=== PATIENT | male | born 1945 | race Caucasian/White ===

== ENCOUNTER 2016-10-03 22:47 | Inpatient (IN) | payer MEDICARE ==
[~2016-10-03] VITALS: Ht 188 cm; Wt 67.2 kg
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
--- NOTE | 2016-10-07 07:14 | OR ---
ADMIT: 10/03/2016 RM/LOC: 312 [facility] MR#: [id number] [address] [address] DOUGLAS ETIENNE [facility] [place] [address] Operative/Delivery Room Report SEX: M AGE: 71 : 1945 SURGERY DATE: 10/04/2016 SURGEON: Manuel Valadez MD [employer] TECHNICIAN: aRad Warren PA-C. PREOPERATIVE DIAGNOSIS: Right femoral neck fracture. POSTOPERATIVE DIAGNOSIS: Right femoral neck fracture. PROCEDURE PERFORMED: Right bipolar hemiarthroplasty. IMPLANTS: DePuy Tri Lock size 6 stem, 1-1/2 neck and a 51 cup. BLOOD LOSS: 100. COMPLICATIONS: None. INDICATION: Douglas is a 71-year-old male, unfortunately alcoholic, who had fallen and hit his head and has what looks like a subarachnoid hemorrhage. He was sent here and admitted to the Neurosurgery Service for care of that. In the course of his workup, he was also found to have a right femoral neck fracture and I was consulted for care of that. After clearance by the neurosurgeon as the lesion in his head seemed to be stable as well as clearance by the medical doctors, we offered surgical fixation. The consent was signed by his daughter and we brought him here for surgery. DESCRIPTION OF PROCEDURE: The patient was identified in the preoperative holding area. Written informed consent was confirmed, site was marked. Brought to the OR, placed supine. General anesthesia was induced. He was then placed in the lateral decubitus position with the right leg up, prepped and draped in the usual sterile fashion. Time-out was performed. Preop antibiotics were confirmed. Made an incision kind of centered over the tip of the trochanter through skin and subcutaneous tissue, cleared off the IT band, cut through the IT band. Put the Charnley in, cleared off the bursa, resected the anterior third of the vastus and the medius in one continuous flap with the minimus and the capsule. Then exposed the proximal femur down to the calcar, removed the fractured femoral head, sized that to 51 on the back table. Removed the other little bony fragments that were still in there and then revised the cut to about, I would say, about 5 mm proximal to the lesser trochanter. Then used the KXEN cutter to open up laterally, the [employer] rasp to lateralize and then reamed starting with the zero up to 0, 1, 2, 3, 4, 5 and 6. Six got me down where it just a little bit proud right where I wanted it and a nice fit mediolateral, wedged in there very nice and stable without complication. Removed this, irrigated copiously with normal saline using the jet lavage and placed the final 6 stem in and impacted the 51 ADMIT: 10/03/2016 RM/LOC: 312 [facility] MR#: [id number] [address] [place] [id number] [place] [address] Operative/Delivery Room Report SEX: M AGE: 71 : 1945 head and relocated the hip. This was very nice and stable. Had excellent motion, no impingement. We then closed with a 5 Tycron and a pursestring suture through the greater trochanter up through the capsule and minimus and then back down the medius and then tied that down and then a running 1 Vicryl for the vastus and then used a 1 Vicryl for the IT band, 2-0 for the subcutaneous and Monocryl for the skin. Placed the glue dressing on there and then he was extubated, brought to the postoperative care unit in good condition. No complications. Postoperatively, he will be weight bear as tolerated with no active abduction. He will be in an abduction pillow while in bed for about 24-48 hours and then will have continued management by neurosurgery team as well as on the alcohol withdrawal protocol by the medical team. Manuel Valadez MD/ daniel JOB #: [id number] CC: Davis Causey, Attending Physician Arturo Ying, Family Physician
--- NOTE | 2016-10-07 07:14 | CO ---
ADMIT: 10/03/2016 RM/LOC: 312 [facility] MR#: [id number] [address] [address] GARRY ETIENNE [facility] [place] [address] Consultation SEX: M AGE: 71 : 1945 DATE OF CONSULTATION: 10/04/2016 ATTENDING PHYSICIAN: Greg Mcrae CONSULTING PHYSICIAN: Manuel Valadez MD CHIEF COMPLAINT: Right hip pain. HISTORY OF PRESENT ILLNESS: This is a 71-year-old male, alcoholic, who had fallen and was found to have subarachnoid hemorrhage and admitted by Neurosurgery for care of that. In the course of just a workup, they found to also have a right femoral neck fracture. I was consulted for that as well. REVIEW OF SYSTEMS: Otherwise negative. PAST MEDICAL HISTORY: Above, otherwise noncontributory. PHYSICAL EXAMINATION: Right lower extremity is a little bit short and externally rotated. Pain with log roll. Sensation intact to light touch with brisk capillary refill. IMAGING: X-ray shows a femoral neck fracture, displaced. ASSESSMENT: Right femoral neck fracture. PLAN: We will plan to do a hemiarthroplasty when he is cleared for surgery on that right hip, otherwise remain nonweightbearing in the right hip until surgery. Manuel Valadez MD/ brianna JOB #: [id number] CC: Greg cMrae, Attending Physician Arturo Ying, Family Physician
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
--- NOTE | 2016-10-15 09:48 | CO ---
ADMIT: 10/03/2016 RM/LOC: 312 [facility] MR#: [id number] [address] [address] [facility] [place] [address] Consultation SEX: M AGE: 71 : 1945 DATE OF CONSULTATION: 10/09/2016 ATTENDING PHYSICIAN: Davis Causey CONSULTING PHYSICIAN: Massimo Steward MD LOCATION OF SERVICE: [facility]. REASON FOR CONSULTATION: Dr. Causey has requested our consultation for service counselor goals and options of care. HISTORY OF PRESENT ILLNESS: This is a 71-year-old gentleman who was admitted on 10/03/2016, where he was found after a fall with a head laceration and posturing at the scene. There was no real clear history regarding this event, however, he was transferred here due to subarachnoid hemorrhage, femur fracture, and facial fracture. Dr. Mcrae has been following as well as Dr. Valadez, please see their dictations for details. Mr. Etienne does have alcohol history and is reported he drinks at least a case of alcohol, beer daily. It is reported his a few years ago and his alcohol use has been getting worse recently. He did develop alcohol withdrawal and he is on alcohol withdrawal protocol at this time. Blood alcohol level outside the hospital was 20. Dr. Valadez was consulted and on 10/04, did proceed with a right bipolar hemiarthroplasty for his right femoral neck fracture. Dr. Mcrae continues to follow for Neurosurgery. Physical Therapy, Occupational Therapy, and Speech Therapy are following. He is able to dangle on the side of the bed and did stand today. He did fail his bedside swallow evaluation with Speech Therapy today. Speech therapy have recommended a modified barium swallow, however, due to his inability to follow commands, he is not able to perform this test at this time. Dr. Causey is aware of Speech Therapy's evaluation today and it is reported to me that he is reaching out to daughter [id number] Isha for this information. He currently has a do not resuscitate/do not intubate status. [employer] construction worker is following for his prison facility placement on discharge. Current functional status reflects a palliative performance score of around 40. He spends most time in the bed. He did stand today with PT. He is unable to do any work, needing assistance with self care. His intake is reduced. His is alert and he is confused. Prior to admission, his functional status reflects a palliative performance score of around 90-100. It is reported he was ambulating without assistive device. Normal activity, self- care was full, intake was normal, conscious level was full. PAST MEDICAL HISTORY: Largely unknown other than alcohol abuse. Sounds like he has not seen a doctor in years. However, through medical documents, I have found hypertension, hypokalemia, tonsillectomy, left rotator cuff repair, right wrist surgery. ADVANCED DIRECTIVE AND CODE STATUS: He is a do not resuscitate/do not intubate status. His daughter, Isha Lima is [id number] for ADMIT: 10/03/2016 RM/LOC: 312 [facility] MR#: [id number] [address] [place] [id number] [place] [address] Consultation SEX: M AGE: 71 : 1945 [phone]. SOCIAL HISTORY: He currently is living in [place], [place]. He does have a daughter involved in his care. There is report of alcohol use, a case of alcohol beer daily. He is as his 2 years ago. It is reported that he does have a history of tobacco abuse. FAMILY HISTORY: Breast cancer, myocardial infarction, Alzheimer disease. CURRENT MEDICATIONS: Include: 1. Norvasc. 2. Protonix. 3. Senokot-S. 4. Benadryl. 5. Maalox. 6. Phenergan. 7. Compazine. 8. Morphine. 9. Hydrocodone. 10.Pepcid. 11.Dulcolax. 12.Colace. 13.Keppra. 14.Sublimaze. 15.Zofran. 16.Trandate. 17.DuoNeb. 18.Potassium protocol. 19.Thiamine with multivitamin, folic acid, and magnesium. ALLERGIES: NO KNOWN ALLERGIES. REVIEW OF SYSTEMS: A 10-point review of systems was attempted, however, due to patient's cognition I was unable to obtain. PHYSICAL EXAMINATION: CONSTITUTIONAL: Weight is 158 pounds. Please see medical record for height and BMI. GENERAL STATUS: This is a male, in no acute distress, confused, and impulsive at times. VITAL SIGNS and CODE STATUS: He is a do not resuscitate/do not intubate status with temperature of 98.4, heart rate 90, respiratory rate 23, blood pressure 160/75, he is on room air oxygenating at 97%. HEENT: Head is normocephalic, atraumatic. He is not wearing glasses. Pupils are 3 mm, PERRLA. Hearing is intact bilaterally. Oral mucosa is dry. Dentition is worn. Anicteric sclerae. Conjunctivae are pale. NECK: No lymphadenopathy. Trachea is midline. Supple. No JVD. RESPIRATORY: Respirations are regular without distress. Lung sounds are clear to auscultation bilaterally. I do not auscultate any wheezes, crackles, ADMIT: 10/03/2016 RM/LOC: 312 [facility] MR#: [id number] [address] [place] [id number] [place] [address] Consultation SEX: M AGE: 71 : 1945 or rhonchi. CARDIOVASCULAR: Rate and rhythm are regular. I do not auscultate rubs, murmurs, clicks, or gallops. GASTROINTESTINAL: Abdomen is soft, flat, nontender, nondistended. Positive bowel sounds in all 4 quadrants. EXTREMITIES: Upper and lower extremities are free of cyanosis, clubbing, or edema. He does have a right hip dressing in place. MUSCULOSKELETAL: Free of joint deformities. He does have generalized weakness. NEUROLOGICAL: He is alert, however, confused and does not follow commands. PSYCHIATRIC: Affect is flat. Insight is impaired. LABORATORY WORK: Reveals sodium 149, potassium 3.1, chloride 119, glucose 95, creatinine 0.7. WBC 10.7, hemoglobin 8.7, hematocrit 25.7, and platelets 261. RADIOLOGY: Reports have been reviewed. Please see EMR for details. IMPRESSION AND PLAN: 1. Physical debility with dysphagia. 2. Confusion. 3. Fatigue. 4. Fall. 5. Subarachnoid hemorrhage, Dr. Mcrae is following. 6. ETOH use with withdrawal. 7. Abdominal aneurysm. 8. Right femoral neck fracture status post right bipolar hemiarthroplasty on 10/[address] Valadez. 9. Anemia. 10.Palliative care. 11.Do not resuscitate/do not intubate status. Currently Mr. Etienne's symptoms are controlled, but he does remain impulsive at times per nursing report. A do not resuscitate/do not intubate status is in place and healthcare [id number] is identified as his daughter Isha Lima. It is reported to me that Isha will be at the bedside later this afternoon, I will return then and review goals and options of care with her when available. I did attempt to discuss goals and options of care ADMIT: 10/03/2016 RM/LOC: 312 [facility] MR#: [id number] [address] [address] [place] [address] Consultation SEX: M AGE: 71 : 1945 with Mr. Etienne, but he is unable to participate fully secondary to his confusion. In review of the medical record, it appears Dr. Causey is reaching out to the daughter today as well concerning speech therapies bedside swallow evaluation with dysphagia. I have discussed this consultation with nursing staff and much support given at this time. Mr. Etienne was seen in collaboration with Dr. Steward who agrees with the above assessment, discussion, and plan. I would like to thank Dr. Causey for the invitation to participate in Mr. Etienne's care. Total consultation time was from 0950 to 1100 hours 10/09/2016 by the Palliative Medicine DISEASE CASE MANAGER. Greater than 50% of time was spent at the bedside and counseling and coordination of care. Chantal Peralta, DISEASE CASE MANAGER / Massimo Steward MD / brianna JOB #: [id number] CC: Davis Causey, Attending Physician Arturo Ying, Family Physician
--- NOTE | 2016-10-17 07:13 | DS ---
ADMIT: 10/03/2016 RM/LOC: 520 [facility] MR#: [id number] 2620 [facility] [address] [place] [id number] [facility] [place] [address] Discharge Summary SEX: M AGE: 71 : 1945 ADMISSION DATE: 10/03/2016 DISCHARGE DATE: 10/15/2016 CONSULTATIONS: 1. Manuel Valadez MD, with Orthopedic Surgery. 2. Greg Mcrae MD, with Neurosurgery. 3. Adi Ram MD, with General Surgery. 4. Massimo Steward MD, Palliative Care. 5. Brett Mario MD, with Oncology. FINAL DIAGNOSES: 1. Fall with subarachnoid hemorrhage. 2. Acute hip fracture. 3. Facial fractures. 4. Alcohol abuse with withdrawal. 5. Hypertension. 6. Severe dysphagia. REASON FOR ADMISSION: The patient is a patient who transferred from outside hospital due to being found down. Had a fall. Subarachnoid hemorrhage, hip fracture. Admitted to the ICU. HOSPITAL COURSE: The patient was admitted. The patient was seen and evaluated by Neurosurgery. Subarachnoid hemorrhage overall stayed stable throughout hospitalization. The patient was taken to surgery by Orthopedic Surgery. The patient subsequently was monitored for alcohol withdrawal. Came through this without much benzodiazepine requirement. Continued to have quite a bit of confusion. Metabolic encephalopathy. He had severe dysphagia. Long discussions were had with family and patient regarding overall goals of care. Patient was altered to the point and confused enough to the point where it was difficult for him to make his own decisions. Ultimately, his daughter made decisions with consultations with the patient. He did voice to us that he did not want a feeding tube. We elected to make him hospice and comfort as our primary goal. Hospice was arranged in transfer. This is due to his severe dysphagia. This is all likely secondary to subarachnoid hemorrhage. DISCHARGE MEDICATIONS: Please see discharge MAR. He will be going out on hospice with routine hospice medications. Davis Causey MD/ damian JOB #: [id number] CC: Davis Causey MD, Attending Physician Arturo Ying MD, Family Physician
--- NOTE | 2016-10-23 09:47 | CO ---
ADMIT: 10/03/2016 RM/LOC: 520 [facility] MR#: [id number] [address] [address] GARRY ETIENNE [facility] [place] [address] Consultation SEX: M AGE: 71 : 1945 DATE OF CONSULTATION: 10/12/2016 ATTENDING PHYSICIAN: Davis Causey MD CONSULTING PHYSICIAN: Brett Mario MD REASON FOR CONSULTATION: Acute neutropenia. HISTORY OF PRESENT ILLNESS: Mr. Jackson is a 71-year-old gentleman with a chronic severe alcoholics, who was admitted due to the fall and the fracture of the femur as well as subarachnoid hemorrhage. He has been admitted and the surgery has been done. He is still not lucid. He is very agitated on withdrawal from the alcohol today. The CBC was drawn, and his white blood cell count was 1.4. Prior to that, his blood counts were around 10, and the repeated CBC was also 1.4 and 1.5. Therefore, Hematology was consulted for further management. It was very difficult to get history from the patient. Therefore, all the history was obtained from the nurse and the covering physician, Dr. Josh Mcrae as well as from the computers and the charts. PAST MEDICAL HISTORY: Largely unknown. He is a chronic alcoholic abuser for years, and he has not seen doctors for years. FAMILY HISTORY: Unable to obtain. SOCIAL HISTORY: Unable to obtain. REVIEW OF SYSTEMS: Unable to obtain due to the patient unable to communicate more and unable to tell me the story and also even on the computers and the nurses and other primary doctors were unable to obtain his medical history as well as the other review of symptoms. PHYSICAL EXAMINATION: VITAL SIGNS: The temperature was 100.3, pulse 90, respirations 18, blood pressure 167/86. HEENT: Normocephalic and atraumatic. LUNGS: Clear. HEART: S1, S2 heard. Regular rate and rhythm. ABDOMEN: Soft, nontender, and nondistended. Positive bowel sounds. EXTREMITIES: No edema. NEUROLOGY: Cannot obtain. LYMPHATICS: No abnormal lymphnodes palpated. LABORATORY DATA: His blood counts; WBC 1.4, hemoglobin 8.7, platelets 267 with an absolute neutrophil count of 0.1 with normal kidney and normal LFTs. His LDH is 328 and ferritin was 419. IMPRESSION AND RECOMMENDATIONS: Mr. Jackson is a 71-year-old pleasant gentleman with a history of alcohol abuse, was admitted due to fall, found to have a fracture and subarachnoid hemorrhage. On workup, he was found to be neutropenic. Therefore, Hematology was consulted for further management. 1. Neutropenia likely from his alcohol abuse from direct suppression of the ADMIT: 10/03/2016 RM/LOC: 520 [facility] MR#: [id number] [address] [place] [phone] [place] [address] Consultation SEX: M AGE: 71 : 1945 bone marrow. He may have some liver disease that can contribute to the neutropenia as well as splenic enlargement, so there is a whole bunch of etiology behind that. He does have mild fever. Therefore, he may have an infection. He will need one dose of Neupogen shot just to support his white blood cell count to prevent and to treat his infection. 2. Alcoholic as well as he has withdrawal under the primary doctor, Dr. Causey is managing. I doubt he has any leukemia or any other sort of issues. He is in a very bad shape. If he recovers in the future, then probably we will do some workup if he still remains neutropenic. Otherwise, I will just watch it and monitor and just give him a Neupogen shot and see how he does and follow up closely in the future if needed. I have spent 55 minutes of my time and more than 50% of the time was spent in discussing with the nurse and with attending physician as the patient is not able to understand and verbalize, and looking at the medical records. Thank you for your consultation and the opportunity in taking care of the patient. Brett Mario MD/ brianna JOB #: [id number] CC: Davis Causey MD, Attending Physician Arturo Ying MD, Family Physician
== END 2016-10-15 16:30 | DRG 956 ==
LOC: ER 22:47 → 3ICU 23:30 → 5MS 10-11 16:23
PROVIDERS: ADMIT Neurological Surgery
PROC: 0HQ1XZZ Repair Face Skin, External Approach (ICD-10-PCS; 2016-10-03)
PROC: 0SRR0JZ Replacement of Right Hip Joint, Femoral Surface with Synthetic Substitute, Open Approach (ICD-10-PCS; principal; 2016-10-04)
PROC: HZ2ZZZZ Detoxification Services for Substance Abuse Treatment (ICD-10-PCS; 2016-10-04)
PROC: 30233N1 Transfusion of Nonautologous Red Blood Cells into Peripheral Vein, Percutaneous Approach (ICD-10-PCS; 2016-10-05)
PROC: 3E0G76Z Introduction of Nutritional Substance into Upper GI, Via Natural or Artificial Opening (ICD-10-PCS; 2016-10-11)
DX: S06.6X9A Traumatic subarachnoid hemorrhage with loss of consciousness of unspecified duration, initial encounter (principal); S72.001A Fracture of unspecified part of neck of right femur, initial encounter for closed fracture; G93.41 Metabolic encephalopathy; G91.9 Hydrocephalus, unspecified; E87.0 Hyperosmolality and hypernatremia; R13.10 Dysphagia, unspecified; E44.0 Moderate protein-calorie malnutrition; S01.81XA Laceration without foreign body of other part of head, initial encounter; T79.7XXA Traumatic subcutaneous emphysema, initial encounter; F10.239 Alcohol dependence with withdrawal, unspecified; D62 Acute posthemorrhagic anemia; S02.40EA Zygomatic fracture, right side, initial encounter for closed fracture; I10 Essential (primary) hypertension; D70.8 Other neutropenia; S61.216A Laceration without foreign body of right little finger without damage to nail, initial encounter; I71.4 Abdominal aortic aneurysm, without rupture; N40.0 Benign prostatic hyperplasia without lower urinary tract symptoms; M83.9 Adult osteomalacia, unspecified; G89.29 Other chronic pain; F07.81 Postconcussional syndrome; R50.81 Fever presenting with conditions classified elsewhere; F32.9 Major depressive disorder, single episode, unspecified; E87.6 Hypokalemia; E83.42 Hypomagnesemia; E83.39 Other disorders of phosphorus metabolism; F17.200 Nicotine dependence, unspecified, uncomplicated; R91.1 Solitary pulmonary nodule; X58.XXXA Exposure to other specified factors, initial encounter; W19.XXXA Unspecified fall, initial encounter; Y90.1 Blood alcohol level of 20-39 mg/100 ml; Z82.49 Family history of ischemic heart disease and other diseases of the circulatory system; Z66 Do not resuscitate